=== PATIENT | male | born 1990 | race Caucasian/White ===

== ENCOUNTER 2019-06-02 08:58 | Emergency (ER) | payer SELFPAY ==
[~2019-06-02] VITALS: Ht 177.8 cm; Wt 68.8 kg
[2019-06-02 09:01] VITALS: BP 135/69; PULSE 80; RESP 18; Ht 177.8 cm; Wt 68.8 kg
[2019-06-02] MEDS ORDERED: DEXAMETHASONE 10 MG/ML 1 ML INJ PO ONE (09:30)
--- NOTE | 2019-06-02 09:39 | ERD ---
ER Documentation Chief Complaint Chief Complaint pt is bib self ,feels like his thyroid is choking him, x 1 month HPI Otherwise healthy 29-year-old male is here complaining of throat pain that he has had for about a month but states got worse today. He states he has difficulty and pain with swallowing but is tolerating oral intake. He has no cough or fever. He is concerned it may be his thyroid he denies any history of thyroid disease or family history of thyroid disease. No nausea or vomiting. ROS All systems reviewed and are negative except as per history of present illness. Allergies Allergies: Coded Allergies: No Known Allergy (Unverified , 06/02/19) PMhx/Soc Medical and Surgical Hx: pt denies Medical Hx, pt denies Surgical Hx FmHx Family History: No diabetes Physical Exam Vitals Vital Signs Date Temp Pulse Resp B/P (MAP) Pulse Ox O2 O2 Flow FiO2 Time Delivery Rate 06/02/19 98.9 80 18 135/69 99 09:01 (91) Physical Exam INITIAL VITAL SIGNS: Reviewed by me GENERAL: Awake, alert and oriented x 4, well appearing, nontoxic, speaking in full sentences. Anxious HEAD: Atraumatic NECK: Supple. No masses or goiter. Full range of motion. No meningismus. No midline tenderness. EYES: EOMI. PERRL. THROAT: No tonilar erythema or edema. No exudates. Uvula midline. No kissing tonsils. RESPIRATORY: Clear to auscultation bilaterally. Symmetric chest wall rise. No wheezing or rales. No accessory muscle use. CV: Regular rate and rhythm. No murmurs, rubs, or gallops. Results 24 hrs Laboratory Tests Test 06/02/19 09:43 Thyroid Stimulating Hormone (TSH) 0.869 MIU/L Current Medications Medications Dose Sig/[place] Start Time Status Last (Trade) Ordered Route PRN Stop Time Admin Dose Reason Admin 10 mg ONCE ONCE 06/02/19 DC 06/02/19 Dexamethasone PO 09:30 09:29 (Decadron) 06/02/19 09:31 Lorazepam 1 mg ONCE ONCE 06/02/19 DC 06/02/19 (Ativan) PO 10:30 10:36 06/02/19 10:31 Procedures/MDM 29-year-old male is here for throat pain. He is concerned for his thyroid. Patients is alert, oriented, well appearing, and in no distress with normal vital signs. There is no fever, tachycardia, or tachypnea. He has no history of thyroid disease or family history of thyroid disease. TSH and ultrasound ordered. TSH and ultrasound are negative. Patient is very anxious on examination and he does admit to feeling very anxious and stressed and I suspect his symptoms are likely at least in part due to his anxiety. He was given a dose of Ativan here. Patient counseled regarding my diagnostic impression and care plan. Prior to discharge all questions answered. Pt agrees with treatment plan and understands strict return precautions. Pt is instructed to follow up ma th primary care provider within 24-48 hours. Precautionary instructions provided including instructions to return to the ER if not improving or for any worsening or changing symptoms or concerns. Departure Diagnosis: Primary Impression: Sore throat Additional Impression: Anxiety Condition: Stable CHANDA LUGO PA-C Jun 02, 2019 09:39
[2019-06-02] MEDS ORDERED: LORAZEPAM 1 MG TAB PO ONE (10:30)
== END 2019-06-02 11:10 | disposition home or self-care (01) ==
LOC: FTE 08:58
DX: J02.9 Acute pharyngitis, unspecified (principal); F41.9 Anxiety disorder, unspecified
CPT/HCPCS: 76536; 84443; 99284; J1100